=== PATIENT | male | born 1945 | race Caucasian/White ===

== ENCOUNTER 2021-03-26 20:23 | Emergency (ER) | payer MEDICARE, OTHER ==
[2021-03-26 22:48] LABS: BASOPHIL 0.3 % (0-2); EOSINOPHIL 0 % (0-7); HCT 43.4 % (42.0-52.0); LYMPHOCYTE 21.6 % (15-48); MCH 33.4 pg (25.0-31.0); MCHC 34.6 g/dL (32.0-36.0); MCV 96.7 fL (78.0-100.0); MPV 9.2 fL (6.0-9.5); NEUTROPHIL 71.8 % (41-80); NRBC 0; PLT 152 K/uL (150-400); RBC 4.49 M/uL (4.70-6.00); RDW 12.2 % (11.5-14.0); WBC 6.3 K/uL (4.0-10.5)
[2021-03-26 22:58] LABS: BILIRUBIN - TOTAL 0.4 mg/dL (0.2-1.0); BUN/CREAT RATIO (CALC) 19.1 RATIO; CREATININE 0.94 mg/dL (0.67-1.17); POTASSIUM 3.5 mmol/L (3.5-5.1)
[2021-03-26 23:51] LABS: INR 1.12 (0.9-1.2); PROTHROMBIN TIME 13.8 SECONDS (11.8-13.4)
[2021-03-27] MEDS ORDERED: ZPAK PO (05:10)
[2021-03-27] MEDS ORDERED: MEDROL 4MG DOSEP4 MG PO (05:10)
[2021-03-27] MEDS ORDERED: VENTOLIN HFA18 GM INH (05:10)
[2021-03-27] MEDS ORDERED: ZOFRAN4 M1 PO (05:10)
== END 2021-03-27 05:31 | disposition left against medical advice (07) ==
LOC: FER 20:23 → EDSEX 20:23 → EDBD 20:23 → FER 03-27 05:31
PROVIDERS: Emergency Medicine
DX: U07.1 COVID-19 (principal); J96.00 Acute respiratory failure, unspecified whether with hypoxia or hypercapnia; Z53.8 Procedure and treatment not carried out for other reasons
CPT/HCPCS: 36415; 36600; 71045; 71275; 80053; 82803; 84484; 85025; 85379; 85610; C9399; J0456; J1100; J7050; Q0244; Q9967; U0002